=== PATIENT | male | born 1955 | race Caucasian/White ===

== ENCOUNTER 2018-08-17 11:46 | Outpatient (CLI) | payer OTHER ==
[2018-08-17 14:14] LABS: Hemoglobin 16.2 g/dL (14.0-18.0); Mean Corpuscular HGB CONC 32.8 g/dL (32.0-36.0); Mean Corpuscular Hemoglobin 30.1 pg (27.0-31.0); Mean Corpuscular Volume 91.9 fL (78.0-98.0); Mean Platelet Volume 9.7 fL (7.4-10.4); Platelet Count 206 thou/uL (130-400); RBC Distribution Width 12.3 % (11.5-14.5); Red Blood Cell (RBC) Count 5.38 mill/uL (4.70-6.10); White Blood Cell (WBC) Count 6.9 thou/uL (4.8-10.8)
[2018-08-17 14:25] LABS: INR-International Normal Ratio 0.9; PTT 28.7 SEC (22.9-36.1); Prothrombin Time 12.6 SEC (12.0-14.7)
[2018-08-17 14:38] LABS: Anion Gap 14 mmol/L (10-20); BUN (Urea Nitrogen) 11 mg/dL (8.4-25.7); Calc. Creatinine Clearance 0 mL/min (70-130); Calcium 9.7 mg/dL (7.8-10.44); Carbon Dioxide 25 mmol/L (23-31); Chloride 106 mmol/L (98-107); Estimated GFR-MDRD Greater than 90; Glucose 102 mg/dL (80-115); Potassium 3.8 mmol/L (3.5-5.1); Sodium 141 mmol/L (136-145)
== END 2018-08-17 11:47 | disposition home or self-care (01) ==
LOC: LABBT 11:46
PROVIDERS: ATTEND Surgery
DX: Z01.818 Encounter for other preprocedural examination (principal); M48.061 Spinal stenosis, lumbar region without neurogenic claudication; M54.16 Radiculopathy, lumbar region
CPT/HCPCS: 80048; 85027; 85610; 85730; 93005; 93010

== ENCOUNTER 2018-08-18 11:23 | Day surgery (SDC) | payer OTHER ==
[2018-08-18] MEDS ORDERED: Sodium Chloride 0.9% 10 ML ONE (11:34)
[2018-08-18] MEDS ORDERED: Thrombin 5000 UNITS/5 ML VIAL ONE (11:34)
[2018-08-18] MEDS ORDERED: CEFAZOLIN/Water 2 GM/20 ML SYRINGE ONE (11:54)
[2018-08-18] MEDS ORDERED: HYDROmorphone 0.5 MG/0.5 ML SYRINGE ONE ×2 (11:59→14:25)
[2018-08-18] MEDS ORDERED: Fentanyl 100 MCG/2 ML VIAL ONE ×2 (11:59→15:00)
[2018-08-18] MEDS ORDERED: Midazolam HCl 2 mg/2 ml Vial ONE (11:59)
[2018-08-18] MEDS ORDERED: PHENYLEPHRINE-NS 100 MCG/ML 10 ML SYRINGE ONE (13:04)
[2018-08-18] MEDS ORDERED: ePHEDrine/0.9% NaCl/PF SYRINGE 50 mg/10 ml ONE (13:04)
[2018-08-18] MEDS ORDERED: Dexamethasone 20 MG/5 ML VIAL ONE (13:04)
[2018-08-18] MEDS ORDERED: Ondansetron PF 4 MG/2 ML Vial ONE (13:04)
[2018-08-18] MEDS ORDERED: Lidocaine 1% PF 5 ML VIAL ONE (13:04)
[2018-08-18] MEDS ORDERED: PROPOFOL 200 MG/20 ML VIAL ONE (13:04)
[2018-08-18] MEDS ORDERED: Glycopyrrolate 0.2 MG/ML 5 ML SYRINGE ONE (13:04)
[2018-08-18] MEDS ORDERED: traMADol HCl 50 MG TAB PO PRN (14:44)
[2018-08-18] MEDS ORDERED: tiZANidine HCl 4 MG TAB PO PRN (14:44)
[2018-08-18] MEDS ORDERED: Acetaminophen 325 MG TAB PO PRN (14:44)
[2018-08-18] MEDS ORDERED: Promethazine HCl 25 MG/ML VIAL IM PRN ×2 (14:44→14:57)
[2018-08-18] MEDS ORDERED: Milk Of Magnesia 30 ML UDCUP PO PRN (14:44)
[2018-08-18] MEDS ORDERED: Acetaminophen/Codeine 30-300mg Tablet PO PRN (14:44)
[2018-08-18] MEDS ORDERED: Bisacodyl 10 MG SUPP PR PRN (14:44)
[2018-08-18] MEDS ORDERED: Fleet Enema 133 ML BOT PR PRN (14:44)
[2018-08-18] MEDS ORDERED: Mag-Al 1200 mg/1200 mg/30 ML UDCUP PO PRN (14:44)
[2018-08-18] MEDS ORDERED: Ondansetron HCl/PF 4 MG/2 ML Vial IVP PRN (14:57)
[2018-08-18] MEDS ORDERED: HYDROmorphone 2 MG/ML VIAL SLOW IVP PRN (14:57)
[2018-08-18] MEDS ORDERED: Promethazine HCl 25 MG/ML VIAL SLOW IVP PRN (14:57)
[2018-08-18] MEDS ORDERED: Ketorolac Tromethamine 30 MG/ML VIAL IVP PRN (14:57)
[2018-08-18 19:41] VITALS: BMI 29.1
[2018-08-18] MEDS: CEFAZOLIN/Water 2 GM/20 ML SYRINGE SLOW IVP SCH (20:06)
[2018-08-19] MEDS: Sodium Chloride 0.9% 1,000 ML IV SCH ×2 (04:07→04:43)
[2018-08-19] MEDS: CEFAZOLIN/Water 2 GM/20 ML SYRINGE SLOW IVP SCH (04:11)
[2018-08-19] MEDS: HYDROcodone/Acetaminophen 7.5/325 mg Tablet PO PRN ×2 (04:18→12:49)
--- NOTE | 2018-08-19 10:27 | PRG ---
DATE OF SERVICE: 08/19/2018 Mr. Rocha is postoperative day 1 from L4-L5 laminectomy, partial facetectomy, foraminotomies, left L4 -L5 diskectomy. He is doing well. He states he can now move his left foot in inversion and eversion , which he could not do prior to surgery. He has no left leg pain. He has no right leg pain. He is ambulating. He still has a complete foot drop, otherwise, but I am encouraged by the inversion and eversion movement that we are now seeing. His wound is healing satisfactorily. We will plan for dis missal.
--- NOTE | 2018-08-19 11:36 | OP ---
OR: 12. WOUND TYPE: Type 1 wound. SURGEON: Rickey Barroso M.D. [facility] ENGINEER: Pineda Mohan PA-C. PREPROCEDURE DIAGNOSES: Left L4-L5 disk extrusion with low back and left leg pain and left foot drop . POSTPROCEDURE DIAGNOSES: Left L4-L5 disk extrusion with low back and left leg pain and left foot ozzy p. PROCEDURES: 1. Left L4-L5 laminectomy with partial facetectomy and foraminotomy with left L4-L5 diskectomy. 2. Use of operative microscope for microdissection. DESCRIPTION OF PROCEDURE: After informed consent was obtained from the patient, the patient was brou ght to OR 12. Proper patient pause and identification was carried out. He was placed under excellen t endotracheal anesthesia and positioned prone on the OR table. All appropriate points were padded. We identified the L4-L5 dorsal spines. A linear asia was made over this region. This area was ster ilely cleansed, prepared, and draped. Proper patient pause and identification was carried out. Bakari t blayne opened up the L4-L5 region of the back and proceeded with subperiosteal dissection to expose the left L4-L5 segment. We exposed both the left and the right L4-L5 segments. Localization film confir med our area of interest. We then performed L4-L5 laminectomy, partial facetectomy, and foraminotomi es. We then brought the microscope in, and working over the shoulder of the left L5 nerve root, we r emoved disk material and also into the axilla. Some of the disk material had appeared to have healed compared to the preoperative MRI, which may fit why the patient had some improvement in his sciatic pain preoperatively. Nevertheless, he had significant compression of the traversing left L5 nerve ro ot. Copious irrigation occurred. Hemostasis was maximized throughout. The wound was then closed in anatomic layers following sprinkle of vancomycin powder. The patient emerged from anesthesia.
[2018-08-19 11:45] VITALS: BP 140/72; TEMP 98.2
== END 2018-08-19 13:37 | disposition home or self-care (01) ==
LOC: SDC 11:23 → SJJU 16:57 → SDC 08-19 13:37
PROVIDERS: ATTEND Surgery
PROC: 0SB20ZZ Excision of Lumbar Vertebral Disc, Open Approach (ICD-10-PCS; principal; 2018-08-19)
PROC: 01NB0ZZ Release Lumbar Nerve, Open Approach (ICD-10-PCS; principal; 2018-08-19)
DX: M51.26 Other intervertebral disc displacement, lumbar region (principal); M48.061 Spinal stenosis, lumbar region without neurogenic claudication; M21.372 Foot drop, left foot
CPT/HCPCS: 76001; 96374; 96375; 96376; G8978-GP-CJ; G8979-GP-CJ; G8980-GP-CJ; J1100; J1170; J2001; J2250; J2405; J2704; J3010; J3370; J3490